=== PATIENT | male | born 1945 | race Caucasian/White ===

== ENCOUNTER → 2024-12-02 11:10 | Outpatient (CLI) | payer MEDICARE, SELFPAY | LOC: WC 01-13 11:11 | PROVIDERS: Family Provider Nurse Practitioner Family; PCP Nurse Practitioner Family; Referring Provider Nurse Practitioner Family; Visit Provider Surgery | DX: I89.0 Lymphedema, not elsewhere classified (principal) | CPT/HCPCS: 29581 ==

== ENCOUNTER → 2024-12-09 11:17 | Outpatient (CLI) | payer MEDICARE, SELFPAY | PROVIDERS: Family Provider Nurse Practitioner Family; PCP Nurse Practitioner Family; Referring Provider Nurse Practitioner Family; Visit Provider Surgery | DX: L89.613 Pressure ulcer of right heel, stage 3 (principal); R60.0 Localized edema; G57.83 Other specified mononeuropathies of bilateral lower limbs | CPT/HCPCS: 29581; 99203; 99212 ==

== ENCOUNTER → 2024-12-16 11:36 | Outpatient (CLI) | payer MEDICARE, SELFPAY | PROVIDERS: Family Provider Nurse Practitioner Family; PCP Nurse Practitioner Family; Referring Provider Nurse Practitioner Family; Visit Provider Surgery | DX: I89.0 Lymphedema, not elsewhere classified (principal); Z79.01 Long term (current) use of anticoagulants | CPT/HCPCS: 29581; 99213 ==

== ENCOUNTER → 2024-12-23 10:58 | Outpatient (CLI) | payer MEDICARE, SELFPAY | PROVIDERS: Family Provider Nurse Practitioner Family; PCP Nurse Practitioner Family; Referring Provider Nurse Practitioner Family; Visit Provider Surgery | DX: I89.0 Lymphedema, not elsewhere classified (principal); I10 Essential (primary) hypertension | CPT/HCPCS: 29581; 99213 ==